=== PATIENT | male | born 1965 | race Native Hawaiian/Other Pacific Islander ===

== ENCOUNTER 2018-06-27 12:53 | Emergency (ER) | payer OTHER ==
[~2018-06-27] VITALS: Ht 182.9 cm; Wt 68.0 kg
[2018-06-27 13:19] VITALS: TEMP 97.9
[2018-06-27 14:00] VITALS: BP 122/74
== END 2018-06-27 14:00 | disposition home or self-care (01) ==
LOC: ED 12:53
DX: S16.1XXA Strain of muscle, fascia and tendon at neck level, initial encounter (principal); S39.012A Strain of muscle, fascia and tendon of lower back, initial encounter
CPT/HCPCS: 96372; 99282; J1885